=== PATIENT | male | born 1970 | race Caucasian/White ===

== ENCOUNTER 2017-11-02 15:00 | Inpatient (IN) | payer OTHER ==
[~2017-11-02] VITALS: Ht 177.8 cm; Wt 120.0 kg
[2017-11-02 15:18] VITALS: BP 138/83
[2017-11-02 15:19] VITALS: BP 144/89
[2017-11-02] MEDS ORDERED: ASPIRIN325 MG PO (15:51)
[2017-11-02] MEDS ORDERED: LIPITOR80 MG PO (15:54)
[2017-11-02] MEDS ORDERED: NORVASC10 MG PO (15:56)
[2017-11-02] MEDS ORDERED: APRESOLINE10 MG PO (15:57)
[2017-11-02] MEDS ORDERED: NORVASC5 MG PO (15:59)
[2017-11-03 00:12] VITALS: BP 153/90
[2017-11-03 05:56] VITALS: BP 135/79
[2017-11-03 06:07] LABS: HEMATOCRIT 46.7 % (38.0-50.0); HEMOGLOBIN 15.5 G/DL (12.5-16.6); MCH 30.3 PG (29.0-34.0); MCHC 33.2 G/DL (30.0-36.0); MCV 91.4 FL (86-99); PLATELET COUNT 216 K/uL (156-360); RBC DIS.WIDTH-CV 12.6 % (11.8-14.6); RBC DIS.WIDTH-SD 42.4 % (39-53); RED BLOOD COUNT 5.11 M/uL (4.00-5.50); WHITE BLOOD COUNT 6.6 K/uL (4.1-10.2)
[2017-11-03 06:27] LABS: ALBUMIN 4.1 G/DL (3.2-4.8); ALKALINE PHOSPHATASE 79 IU/L (3-129); ALT (GPT) 89 IU/L (3-49); AST (GOT) 45 IU/L (2-34); CHLORIDE 106 MEQ/L (99-109); CREATININE 1.1 MG/DL (0.6-1.3); GFR ESTIMATE (CALCULATED) > 59 mL/min/ (58.99-99999); GLUCOSE 120 mg/dL (70-99); POTASSIUM 4.3 MEQ/L (3.7-5.4); SODIUM 140 MEQ/L (136-147); TOTAL BILIRUBIN 0.9 MG/DL (0.0-1.0); TOTAL PROTEIN 6.6 G/DL (6.4-8.3); UREA NITROGEN (BUN) 25 mg/dL (9-23)
[2017-11-03 15:46] VITALS: BP 138/81
[2017-11-04 05:41] VITALS: BP 128/73
[2017-11-04 12:40] VITALS: BP 141/87
[2017-11-04 15:52] VITALS: BP 132/87
[2017-11-05 05:56] VITALS: BP 130/74
[2017-11-05 15:27] VITALS: BP 142/80
[2017-11-05 17:33] VITALS: BP 126/73
[2017-11-06 05:19] VITALS: BP 129/78
[2017-11-06 15:44] VITALS: BP 134/86
[2017-11-06 23:49] VITALS: BP 144/92
[2017-11-07 05:29] VITALS: BP 130/79
[2017-11-07 15:24] VITALS: BP 128/78
[2017-11-08 05:14] VITALS: BP 132/54
[2017-11-08 06:13] VITALS: BP 119/70
[2017-11-08 16:00] VITALS: BP 129/72
[2017-11-09 05:51] VITALS: BP 121/69
[2017-11-09 08:59] LABS: HEMATOCRIT 43.4 % (38.0-50.0); HEMOGLOBIN 14.3 G/DL (12.5-16.6); MCH 29.8 PG (29.0-34.0); MCHC 32.9 G/DL (30.0-36.0); MCV 90.4 FL (86-99); RBC DIS.WIDTH-CV 11.8 % (11.8-14.6); RBC DIS.WIDTH-SD 39.5 % (39-53); WHITE BLOOD COUNT 6.4 K/uL (4.1-10.2)
[2017-11-09 09:01] LABS: PLATELET COUNT 296 K/uL (156-360)
[2017-11-09 09:26] LABS: ALBUMIN 4.2 G/DL (3.2-4.8); ALT (GPT) 109 IU/L (3-49); AST (GOT) 49 IU/L (2-34); CHLORIDE 105 MEQ/L (99-109); CREATININE 1.1 MG/DL (0.6-1.3); GFR ESTIMATE (CALCULATED) > 59 mL/min/ (58.99-99999); GLUCOSE 90 mg/dL (70-99); POTASSIUM 3.5 MEQ/L (3.7-5.4); SODIUM 140 MEQ/L (136-147); TOTAL PROTEIN 7.4 G/DL (6.4-8.3); UREA NITROGEN (BUN) 18 mg/dL (9-23)
[2017-11-09 09:28] LABS: ALKALINE PHOSPHATASE 102 IU/L (3-129); TOTAL BILIRUBIN 0.6 MG/DL (0.0-1.0)
[2017-11-09 14:48] VITALS: BP 134/74
[2017-11-09] MEDS ORDERED: ASPIRIN325 MG PO (22:41)
[2017-11-09] MEDS ORDERED: LIPITOR80 MG PO (22:41)
[2017-11-09] MEDS ORDERED: LOSARTAN POTASS25 MG PO (22:41)
[2017-11-09] MEDS ORDERED: Thiamine,Vitamin B1 PO (22:41)
[2017-11-09] MEDS ORDERED: NORVASC10 MG PO (22:41)
[2017-11-10 06:03] VITALS: BP 112/61
== END 2017-11-10 13:26 | DRG 57 ==
LOC: 3WEST 15:00 → ENPENDDIS 11-10 → 3WEST 11-10 13:26
PROVIDERS: Physical Medicine & Rehabilitation Pain Medicine
PROC: F07M0ZZ Range of Motion and Joint Mobility Treatment of Musculoskeletal System - Whole Body (ICD-10-PCS; principal; 2017-11-02)
DX: I69.354 Hemiplegia and hemiparesis following cerebral infarction affecting left non-dominant side (principal); R26.2 Difficulty in walking, not elsewhere classified; I69.392 Facial weakness following cerebral infarction; I69.391 Dysphagia following cerebral infarction; R13.10 Dysphagia, unspecified; I69.322 Dysarthria following cerebral infarction; I16.0 Hypertensive urgency; I10 Essential (primary) hypertension; E66.9 Obesity, unspecified; Z68.37 Body mass index [BMI] 37.0-37.9, adult; E78.00 Pure hypercholesterolemia, unspecified; E87.6 Hypokalemia; R79.89 Other specified abnormal findings of blood chemistry; I51.7 Cardiomegaly; M79.662 Pain in left lower leg; M79.661 Pain in right lower leg; F10.10 Alcohol abuse, uncomplicated; Z60.2 Problems related to living alone; Z82.3 Family history of stroke; Z82.49 Family history of ischemic heart disease and other diseases of the circulatory system
CPT/HCPCS: 80053; 85027; 92507 GN; 92523 GN; 92526 GN; 92610 GN; 97110 GO; 97112 GO; 97530 GP; G0283 GO; J1650